=== PATIENT | female | born 1945 | race Caucasian/White ===

== ENCOUNTER 2024-02-27 06:41 | Emergency (ER) | payer OTHER, MEDICARE ==
[2024-02-27] MEDS ORDERED: Ibuprofen 200 MG TAB ONE (07:17)
== END 2024-02-27 08:12 | disposition home or self-care (01) ==
LOC: BURERS 06:41
DX: S51.812A Laceration without foreign body of left forearm, initial encounter (principal); S00.83XA Contusion of other part of head, initial encounter; E03.9 Hypothyroidism, unspecified; E78.5 Hyperlipidemia, unspecified; I10 Essential (primary) hypertension; V89.2XXA Person injured in unspecified motor-vehicle accident, traffic, initial encounter; Z79.899 Other long term (current) drug therapy